=== PATIENT | male | born 1975 | race Caucasian/White ===

== ENCOUNTER 2023-07-16 22:43 | Emergency (ER) | payer SELFPAY ==
[2023-07-16 23:11] VITALS: BP 190/96; O2SAT 98
--- NOTE | 2023-07-17 00:11 | ED Physician Documentation ---
PD HPI HEENT - Stated complaint Stated Complaint: RT SIDE MOUTH PX - Chief complaint Chief Complaint: General - History obtained from History obtained from: Patient - History of Present Illness Timing - onset: How many days ago (4) - Additional information Additional information: HPI from patient. Patient c/o gradual onset, atraumatic right lower tooth pain (by pointing, he indicates the mandibular right first molar) x 4 days. This tooth had broken some time ago and occasionally causes self-limited episodes of pain, but this is the longest episodes thus far and has become associated with right jaw swelling that is obvious/visible on facial inspection. Denies fevers. Pain is worse with chewing. Has appointment with dentist tomorrow for evaluation to include xrays. Review of Systems Constitutional: denies: Fever Throat: reports: Dental pain / toothache. denies: Sore throat PD PAST MEDICAL HISTORY - Past Medical History Past Medical History: No - Present Medications Home Medications: Ambulatory Orders Medication Instructions Recorded Confirmed Amox/Clav 875/125 [Augmentin 1 tablet PO Q12H 10 Days #20 tablet 07/17/23 875/125 Tab] HYDROcod/ACETAM 5/325 [Viola 5/325] 1 - 2 tablet PO Q6H PRN #14 tablet 07/17/23 - Allergies Allergies/Adverse Reactions: Allergies Allergy/AdvReac Type Severity Reaction Status Date / Time No Known Drug Allergies Allergy Verified 07/16/23 22:54 PD ED PE NORMAL - Vitals Vital signs reviewed: Yes - General General: Alert and oriented X 3, No acute distress, Well developed/nourished PD ED PE EXPANDED - HEENT HEENT: Dental decay (#30 is missing the posteromedial cusp. no gingival swelling, erythema, fluctuance. the tooth is tender to percussion), Other (visible swelling of right mandible, mid-body. no margins nor fluctuance to suggest abscess. the ) Results - Vitals Vitals: Oxygen O2 Source Room air PD Medical Decision Making - ED course Complexity details: considered differential, d/w patient ED course: Dental infection associated with broken tooth #30. Given Augmentin in ED and vicodin take-home pack, and prescriptions for both medications e-prescribed to h is pharmacy of choice. I am prescribing a short course of short-acting opioid pain medication for this patient. I have reviewed the patients COAL WEIGHER and no concerning findings were noted. I have discussed that the opioids are for short term therapy only, and will not be refilled from the ED. Departure - Departure Disposition: 01 Home, Self Care Clinical Impression: Dental infection Condition: Good Instructions: ED Abscess Dental Follow-Up: Farhad Vincent DDS [Provider Admit Priv/Credential] - Prescriptions: Amox/Clav 875/125 [Augmentin 875/125 Tab] 1 tablet PO Q12H 10 Days #20 tablet HYDROcod/ACETAM 5/325 [Viola 5/325] 1 - 2 tablet PO Q6H PRN #14 tablet PRN Reason: Pain Comments: You are given the first dose of an antibiotic (Augmentin) in the emergency department, and a prescription for a 10-day course of this antibiotic has been electronically submitted to the [facility] in [place]. I have also submitted a prescription for the pain medication Vicodin (narcotic/opiate pain medication) to the same pharmacy. Follow-up with your dentist as scheduled. I am providing the information for a local oral surgeon (Dr. Farhad Vincent, information is included on these discharge sheets). However, as we discussed, you should speak to your dentist first to see if they have someone specific in mind, and/or if you need a referral. I am prescribing a short course of narcotic pain medication for you. These are potentially dangerous and addictive medications that should be used carefully. These medications may constipate you. Take an nxtq-lux-wgzamuh stool softener (docusate) twice daily with plenty of water while taking these medications. If you go 24 hours without a bowel movement, take [id number] miralax, per package instructions. Do not drink or drive while taking these medications. If you received narcotic or sedating medications while in the emergency department, do not drive for 24 hours. Store this medication in a safe, secure place and out of reach of children. It is a violation of federal law to give or sell this medication to another person or to use in a manner other than prescribed. The ED will not refill narcotic prescriptions, including prescriptions lost or stolen. To dispose of unwanted medications: 1. [facility] [address] [place] has a medication drop box. They accept prescription medications (in pill form) Sunday through Sunday 9:00 a.m. to 5:00 p.m. 2. [facility] accepts prescription medications (in pill form only) for disposal year round. Call for more information. 3. Contact the [facility] for the next [facility] sponsored prescription drug collection event. , [phone], or [phone]; Discharge Date/Time: 07/17/23 00:48
[2023-07-17] MEDS ORDERED: HYDROcod/ACET 5/325 Prepack 4 PO STA (00:30)
[2023-07-17] MEDS ORDERED: AMOX/CLAV 875 MG/125 MG TABLET PO STA (00:31)
== END 2023-07-17 00:48 | disposition home or self-care (01) ==
LOC: ED 22:43
DX: K04.7 Periapical abscess without sinus (principal); K02.9 Dental caries, unspecified
CPT/HCPCS: 99282; 99283; A9270